=== PATIENT | female | born 1990 | race Two or more races ===

== ENCOUNTER 2023-08-06 07:51 | Emergency (ER) | payer OTHER ==
[~2023-08-06] VITALS: Ht 157.5 cm; Wt 61.2 kg
[2023-08-06] MEDS ORDERED: TETANUS & DIPHTHERIA TOX,ADULT 0.5 ML VIAL IM STA (08:48)
== END 2023-08-06 09:05 | disposition home or self-care (01) ==
LOC: ER 07:52
DX: S80.211A Abrasion, right knee, initial encounter (principal); X58.XXXA Exposure to other specified factors, initial encounter; Y93.89 Activity, other specified; Y92.89 Other specified places as the place of occurrence of the external cause; Y99.8 Other external cause status; R53.81 Other malaise

== ENCOUNTER 2023-08-10 05:45 | Day surgery (SDC) | payer OTHER ==
[2023-08-03 10:46] LABS: PH,URINE 5.5 (5.0-8.0); URINE APPEARANCE Clear; URINE BILIRRUBIN Negative (NEGATIVE); URINE BLOOD Negative; URINE COLOR Yellow; URINE GLUCOSE Negative (NEGATIVE); URINE LEUKOCYTE Negative; URINE NITRATE Negative; URINE PROTEIN Negative (NEGATIVE); URINE UROBILINOGEN 0.2 E.U./dl
[2023-08-03 10:48] LABS: URINE BACTERIA 613.5 uL (0.0-1933); URINE EPITHELIAL CELLS 15.1 uL (0.0-38.8); URINE WBC 6.9 uL (0.0-23.2)
[2023-08-03 11:19] LABS: HEMATOCRIT 36.6 % (36.0-45.00); HEMOGLOBIN 12.3 g/dL (12.0-15.00); MEAN CELL VOLUME 86.1 fL (80.00-100.00); MEAN CORPUSCULAR HEMOGLOBIN 28.9 pg (27.00-32.0); MEAN CORPUSCULAR HGB CONC 33.5 g/dl (32.0-36.0); PLATELET COUNT 483 K/uL (150-450); RED BLOOD COUNT 4.25 M/uL (4.00-6.00); RED CELL DISTRIBUTION WIDTH 16.2 % (11.5-14.5)
[2023-08-03 11:26] LABS: INR 1.02; PARTIAL THROMBOPLASTIN TIME 30.7 SECONDS (22.0-34.0); PROTHROMBIN TIME 10.7 SECONDS (9.0-11.5)
[2023-08-03 11:42] LABS: ALBUMIN 4.1 gm/dL (3.4-5.0); BILIRUBIN TOTAL 0.48 mg/dL (0.3-1.2); CALCIUM 9.1 mg/dL (8.5-10.1); CREATININE SERUM 0.75 mg/dL (0.55-1.02); GFR 88.45; POTASSIUM 4.41 mEq/L (3.5-5.1); TOTAL PROTEIN 8.1 gm/dL (6.4-8.2); TSH 1.34 uIU/mL (0.358-3.74)
[2023-08-10] MEDS ORDERED: CEFOXITIN SODIUM 2,000 MG VIAL IV ONE ×2 (07:04→08:15)
[2023-08-10] MEDS ORDERED: MORPHINE SULFATE 4 MG/ML VIAL IV PRN (09:30)
[2023-08-10] MEDS ORDERED: PROMETHAZINE HCL 50 MG/ML AMPUL IM ONE (09:30)
[2023-08-10] MEDS ORDERED: MORGIDOX100 MG PO (09:35)
[2023-08-10] MEDS ORDERED: NAPR500T14 PO (09:35)
== END 2023-08-10 14:15 | disposition home or self-care (01) ==
LOC: CIR.AMB 05:45 → EDBD 08:15 → CIR.AMB 08:45
PROVIDERS: ATTEND Obstetrics & Gynecology
DX: N84.0 Polyp of corpus uteri (principal); N92.5 Other specified irregular menstruation; D25.0 Submucous leiomyoma of uterus; Q51.3 Bicornate uterus